=== PATIENT | male | born 1965 | race Caucasian/White ===

== ENCOUNTER 2019-01-24 02:01 | Emergency (ER) | payer BC ==
--- NOTE | 2019-01-24 02:03 | PDOC ---
History of Present Illness - General Chief Complaint: Pain, Acute Stated Complaint: ABD PAIN Time Seen by Provider: 01/24/19 02:03 History Source: Patient Exam Limitations: No Limitations - History of Present Illness Initial Comments: 01/24/19 02:34 This is a 53-year-old male who comes in complaining of abdominal pain in his right upper quadrant area 3 hours prior to arrival. Patient has a history of gallstones but no history of similar gallbladder Attacks in the past. Patient is otherwise healthy Allergies: as per nursing notes Past Medical History: none Social history: Lives with family. No smoking. No alcohol. No illicit drugs. Surgical history: None General: No fevers or chills, no weakness, no weight loss HEENT: No change in vision. No sore throat,. No ear pain CardioVascular: no chest discomfort. No shortness of breath Respiratory:No cough, or wheezing. Gastrointestinal: no nausea, vomiting, diarrhea or constipation, No rectal bleeding, abdominal pain Genitourinary: No dysuria, hematuria, or frequency Musculoskeletal: No joint or muscle pain or swelling Neurologic: No headache, vertigo, dizziness or loss of consciousness Psychiatric: nor depression Skin: No rashes or easy bruising Endocrine: no increased thirst or abnormal weight change Allergic: no skin or latex allergy All other systems reviewed and normal Exam: General: Well-nourished well-developed individual, no acute distress HEENT: Throat: Normal, tonsils normal, no erythema or exudate Neck: Supple, no meningeal signs, no lymphadenopathy Eyes::Pupils equal reactive and round, extraocular motion intact Chest: Nontender to palpation Cardiac: S1-S2 normal, regular rate and rhythm, no murmurs rubs or gallops Respiratory: Lungs clear to auscultation bilateral Abdomen: Soft, nondistended, normal bowel sounds, there is + tender to palpation right upper quadrant no guarding or rebound Extremities: Warm, dry, no cyanosis, clubbing, or edema Skin: No rashes Neuro: Alert and oriented x3, CN II - XII intact, nonfocal exam with normal strength, normal sensation, normal reflexes, normal gait, Psych: Normal mood and affect Assessment and plan: This is a 53-year-old male who comes in with right upper quadrant pain. Patient had a workup done that was negative for any acute pathology including labs CBC EKG and ultrasound. Patient felt better after medication and fluids and was discharged home. Past History - Past Medical History Allergies/Adverse Reactions: Allergies Allergy/AdvReac Type Severity Reaction Status Date / Time No Known Allergies Allergy Verified 12/01/12 18:08 Home Medications: Ambulatory Orders Fenofibrate Nanocrystallized [Tricor] 48 mg PO DAILY 10/15/13 Aspirin [Aspirin EC] 81 mg PO DAILY 03/24/14 Liraglutide [Victoza -] 1.2 mg SQ DAILY@0700 01/24/19 Tadalafil [Cialis] 2.5 mg PO DAILY 01/24/19 Diabetes: Yes Hypercholesterolemia: Yes (TRIGLYCERIDES) - Immunization History Immunization Up to Date: No - Suicide/Smoking/Psychosocial Hx Smoking Status: No Smoking History: Unknown if ever smoked Number of Cigarettes Smoked Daily: 0 Hx Alcohol Use: Yes ED Treatment Course - LABORATORY CBC & Chemistry Diagram: 01/24/19 02:30 01/24/19 02:30 *DC/Admit/Observation/Transfer Diagnosis at time of Disposition: Abdominal pain Qualifiers: Abdominal location: right upper quadrant Qualified Code(s): R10.11 - Right upper quadrant pain - Discharge Dispostion Disposition: HOME Condition at time of disposition: Stable Decision to Admit order: No - Referrals Referrals: Jay Castanon MD [Primary Care Provider] - - Patient Instructions Additional Instructions: Her workup was normal there was no evidence of any inflammation of your gallbladder however there is a lot of stones in it as well as some sludge this most likely was a gallbladder attack that resolved. Follow-up with a surgeon for further evaluation especially if you have further episodes of similar pain. Return to the emergency department immediately with ANY new, persistent or worsening symptoms. Continue any medications as previously prescribed by your physician. You should follow up with your primary doctor as soon as possible regarding today's emergency department visit. . Please make sure your doctor reviews the results of your emergency evaluation. Thank you for coming to the Emergency Department today for your care. It was a pleasure to see you today. Please note that your evaluation is INCOMPLETE until you follow-up with your doctor. - Post Discharge Activity
[2019-01-24 02:11] VITALS: BP 134/95; PULSE 60; TEMP 97.8; BMI 33.9
[2019-01-24] MEDS ORDERED: morphine CARPU-JECT 4 MG/1 ML DISP.SYRIN IVPUSH ONE (02:16)
[2019-01-24] MEDS ORDERED: ONDANSETRON 4 MG/2 ML VIAL IVPB ONE (02:16)
[2019-01-24] MEDS ORDERED: SODIUM CHLORIDE 1,000 ML IV ONE (02:16)
[2019-01-24] MEDS ORDERED: KETOROLAC TROMETHAMINE 30 MG/1 ML VIAL IVPUSH ONE (02:16)
[2019-01-24] MEDS ORDERED: morphine SULFATE 4 MG/ML VIAL ONE (02:20)
[2019-01-24] MEDS ORDERED: ONDANSETRON 4 MG/2 ML VIAL ONE (02:20)
[2019-01-24] MEDS ORDERED: KETOROLAC TROMETHAMINE 30 MG/1 ML VIAL ONE (02:20)
[2019-01-24 03:20] LABS: BASO % 0.7 % (0-2.0); EOS % 3.5 % (0-4.5); HEMATOCRIT 44.7 % (35.4-49); LYMPH % 31.8 % (8-40); MCHC 33.5 g/dl (32.0-35.9); MEAN CELL VOLUME 89.6 fl (80-96); MEAN PLT VOLUME 9.4 fl (7.5-11.1); MONO % 11.9 % (3.8-10.2); NEUT % 52.1 % (42.8-82.8); PLATELET COUNT 224 K/MM3 (134-434); RBC 4.99 M/mm3 (4.00-5.60); RDW 13.9 % (11.9-15.9); WHITE BLOOD COUNT 5.7 K/mm3 (4.0-10.0)
[2019-01-24 04:29] LABS: ALBUMIN 3.7 g/dl (3.4-5.0); BILIRUBIN,TOTAL 0.4 mg/dL (0.2-1); BLOOD UREA NITROGEN 16.6 mg/dL (7-18); CALCIUM 8.7 mg/dL (8.5-10.1); CREATININE 1.3 mg/dL (0.55-1.3); POTASSIUM 3.8 mmol/L (3.5-5.1); TOT PROT 6.5 g/dl (6.4-8.2)
--- NOTE | 2019-01-24 11:24 | EKG ---
Test Reason : Blood Pressure : / mmHG Vent. Rate : 058 BPM Atrial Rate : 058 BPM P-R Int : 170 ms QRS Dur : 094 ms QT Int : 410 ms P-R-T Axes : 044 037 037 degrees QTc Int : 402 ms SINUS BRADYCARDIA NO PREVIOUS ECGS AVAILABLE Confirmed by SIOBHAN VO MD ([id number]) on 01/24/2019 11:23:31 AM Referred By: AYAD ANDINO Confirmed By:SIOBHAN VO MD
== END 2019-01-24 04:41 | disposition home or self-care (01) ==
LOC: FER 02:01
PROC: 3E0333Z Introduction of Anti-inflammatory into Peripheral Vein, Percutaneous Approach (ICD-10-PCS; principal; 2019-01-24)
PROC: 3E033NZ Introduction of Analgesics, Hypnotics, Sedatives into Peripheral Vein, Percutaneous Approach (ICD-10-PCS; 2019-01-24)
PROC: 3E0337Z Introduction of Electrolytic and Water Balance Substance into Peripheral Vein, Percutaneous Approach (ICD-10-PCS; 2019-01-24)
PROC: 3E033GC Introduction of Other Therapeutic Substance into Peripheral Vein, Percutaneous Approach (ICD-10-PCS; 2019-01-24)
DX: R10.11 Right upper quadrant pain (principal)
CPT/HCPCS: 36415; 76705-TC; 80053; 83690; 85025; 93005; 99283-25; J7030